=== PATIENT | male | born 1970 | race African-American/Black ===

== ENCOUNTER 2024-04-29 07:49 | Emergency (ER) | payer OTHER, SELFPAY ==
[2024-04-29] VITALS (12 sets, daily range): BP systolic 122–140; BP diastolic 76–95; PULSE 94–113; RESP 14–16; TEMP 98.2; O2SAT 98
[~2024-04-29] VITALS: Ht 180.3 cm; Wt 123.0 kg
[2024-04-29 08:26] LABS: BASOPHILS % 1.2 % (0.0-2.0); DIFFERENTIAL COMMENT 0; HEMOGLOBIN. 10.9 g/dL (14.0-18.0); LYMPHOCYTES % 20.7 % (20.0-50.0); MEAN CORPUSCULAR HEMOGLOBIN 33.6 pg (28.0-32.0); MEAN CORPUSCULAR HGB CONC 33.1 g/dL (31.0-37.0); MEAN CORPUSCULAR VOLUME 101.7 fL (80.0-94.0); MEAN PLATELET VOLUME 10.7 fl (7.4-10.4); MONOCYTES % 11.5 % (2.0-8.0); NEUTROPHILS % 59.6 % (40.0-76.0); PLATELET 87 x1000/uL (130-400); RED BLOOD CELL COUNT 3.24 mill/uL (4.7-6.1); RED CELL DISTRIBUTION WIDTH 18.4 % (11.6-14.6); WHITE BLOOD COUNT 3.8 x1000/uL (4.5-11.0)
[2024-04-29 08:32] LABS: POTASSIUM 4.3 mEq/L (3.5-5.1)
[2024-04-29 08:33] LABS: CALCIUM 9.5 mg/dL (8.7-10.4)
[2024-04-29 08:40] LABS: INR 1.1; PROTHROMBIN TIME 12.4 sec (9.6-11.0)
[2024-04-29 08:49] LABS: CREATININE 7.1 mg/dL (0.6-1.3)
[2024-04-29] MEDS: ALTEPLASE 2MG/VIAL ITC ONE (10:43)
[2024-04-29] MEDS ORDERED: LIDOCAINE HCL 1% 10 MG/ML 10ML VIAL ONE (13:37)
[2024-04-29] MEDS ORDERED: FENTANYL CITRATE/PF 50MCG/ML 2ML VIAL ONE (13:54)
[2024-04-29] MEDS: CEFAZOLIN 1000MG PREMIX 50 ML IV NR (13:55)
[2024-04-29] MEDS: FENTANYL CITRATE/PF 50MCG/ML 2ML VIAL IV NR (14:00)
== END 2024-04-29 16:03 | disposition home or self-care (01) ==
LOC: ER 07:49
DX: T82.510A Breakdown (mechanical) of surgically created arteriovenous fistula, initial encounter (principal); I12.0 Hypertensive chronic kidney disease with stage 5 chronic kidney disease or end stage renal disease; N18.6 End stage renal disease; Z99.2 Dependence on renal dialysis; X58.XXXA Exposure to other specified factors, initial encounter
CPT/HCPCS: 80048; 85025; 85610; 36415; 93971; 77001; 71045; 36558; 76937; 93005; 96365; 96375; 99285; J3010; J2997; J0690; J1642; J3490; Z7610 ×4; C1750; C1887; C1769 ×2